=== PATIENT | female | born 1985 | race Two or more races ===

== ENCOUNTER → 2020-06-30 | Outpatient (CLI) | payer OTHER | END | disposition home or self-care (01) | LOC: PRENATAL 10:00 | PROVIDERS: ATTEND Obstetrics & Gynecology Maternal & Fetal Medicine | DX: Z36.89 Encounter for other specified antenatal screening (principal); O36.80X1 Pregnancy with inconclusive fetal viability, fetus 1; O09.511 Supervision of elderly primigravida, first trimester; Z3A.11 11 weeks gestation of pregnancy ==

== ENCOUNTER → 2020-08-30 | Outpatient (CLI) | payer OTHER | END | disposition home or self-care (01) | LOC: PRENATAL 08:00 | PROVIDERS: ATTEND Obstetrics & Gynecology Maternal & Fetal Medicine | DX: O35.0XX1 Maternal care for (suspected) central nervous system malformation in fetus, fetus 1 (principal); O35.3XX1 Maternal care for (suspected) damage to fetus from viral disease in mother, fetus 1; O98.512 Other viral diseases complicating pregnancy, second trimester; O09.512 Supervision of elderly primigravida, second trimester; Z36.89 Encounter for other specified antenatal screening; Z3A.20 20 weeks gestation of pregnancy ==

== ENCOUNTER → 2020-09-28 | Outpatient (CLI) | payer OTHER | END | disposition home or self-care (01) | LOC: PRENATAL 13:00 | PROVIDERS: ATTEND Obstetrics & Gynecology Maternal & Fetal Medicine | DX: O26.842 Uterine size-date discrepancy, second trimester (principal); O24.410 Gestational diabetes mellitus in pregnancy, diet controlled; O09.512 Supervision of elderly primigravida, second trimester; Z36.89 Encounter for other specified antenatal screening; Z3A.23 23 weeks gestation of pregnancy ==

== ENCOUNTER → 2020-11-02 | Outpatient (CLI) | payer OTHER | END | disposition home or self-care (01) | LOC: PRENATAL 14:00 | PROVIDERS: ATTEND Obstetrics & Gynecology Maternal & Fetal Medicine | DX: O26.843 Uterine size-date discrepancy, third trimester (principal); O24.410 Gestational diabetes mellitus in pregnancy, diet controlled; O09.513 Supervision of elderly primigravida, third trimester; O35.0XX1 Maternal care for (suspected) central nervous system malformation in fetus, fetus 1; O36.5931 Maternal care for other known or suspected poor fetal growth, third trimester, fetus 1; Z36.89 Encounter for other specified antenatal screening; Z3A.28 28 weeks gestation of pregnancy ==

== ENCOUNTER → 2020-11-23 | Outpatient (CLI) | payer OTHER ==
[~2020-11-23] MED LIST: ADULT LOW DOSE81 M1; ATABEX OB TABL1 EACH
== END | disposition home or self-care (01) ==
LOC: PRENATAL 15:00
PROVIDERS: ATTEND Obstetrics & Gynecology Maternal & Fetal Medicine
DX: O26.843 Uterine size-date discrepancy, third trimester (principal); O24.410 Gestational diabetes mellitus in pregnancy, diet controlled; O09.513 Supervision of elderly primigravida, third trimester; O36.5931 Maternal care for other known or suspected poor fetal growth, third trimester, fetus 1; Z36.89 Encounter for other specified antenatal screening; Z3A.31 31 weeks gestation of pregnancy

== ENCOUNTER 2020-12-10 17:21 | Outpatient (CLI) | payer OTHER | END 2020-12-11 10:05 | disposition home or self-care (01) | LOC: OBS/DEL 17:21 | PROVIDERS: ATTEND Obstetrics & Gynecology | DX: O26.893 Other specified pregnancy related conditions, third trimester (principal); Z04.1 Encounter for examination and observation following transport accident; Z3A.35 35 weeks gestation of pregnancy; V49.88XA Car occupant (driver) (passenger) injured in other specified transport accidents, initial encounter; Y93.89 Activity, other specified; Y92.488 Other paved roadways as the place of occurrence of the external cause; Y99.8 Other external cause status ==

== ENCOUNTER → 2020-12-21 | Outpatient (CLI) | payer OTHER | END | disposition home or self-care (01) | LOC: PRENATAL 13:26 | PROVIDERS: ATTEND Obstetrics & Gynecology Maternal & Fetal Medicine | DX: O26.843 Uterine size-date discrepancy, third trimester (principal); O24.410 Gestational diabetes mellitus in pregnancy, diet controlled; O09.513 Supervision of elderly primigravida, third trimester; O36.5931 Maternal care for other known or suspected poor fetal growth, third trimester, fetus 1; Z36.89 Encounter for other specified antenatal screening; Z3A.35 35 weeks gestation of pregnancy ==

== ENCOUNTER 2020-12-22 14:45 | Inpatient (IN) | payer OTHER ==
[~2020-12-22] VITALS: Ht 162.6 cm; Wt 64.4 kg
[2021-01-02] MEDS ORDERED: ATABEX OB TABL1 EACH (08:14)
[2021-01-02] MEDS ORDERED: ADULT LOW DOSE81 M1 (08:15)
== END 2021-01-03 13:00 | disposition home or self-care (01) | DRG 807 ==
LOC: SURG-SUITE 01-01 03:42 → LDR 01-01 03:42 → SURG-SUITE 01-01 16:30 → OB/GYN 01-14 14:45
PROVIDERS: ADMIT Obstetrics & Gynecology; ATTEND Obstetrics & Gynecology
PROC: 10E0XZZ Delivery of Products of Conception, External Approach (ICD-10-PCS; principal; 2021-01-01)
PROC: 0KQM0ZZ Repair Perineum Muscle, Open Approach (ICD-10-PCS; 2021-01-01)
PROC: 4A1HXFZ Monitoring of Products of Conception, Cardiac Rhythm, External Approach (ICD-10-PCS; 2021-01-01)
DX: O42.02 Full-term premature rupture of membranes, onset of labor within 24 hours of rupture (principal); Z37.0 Single live birth; O24.420 Gestational diabetes mellitus in childbirth, diet controlled; O70.1 Second degree perineal laceration during delivery; Z3A.38 38 weeks gestation of pregnancy